=== PATIENT | male | born 1945 | race Caucasian/White ===

== ENCOUNTER 2017-08-24 08:54 | Outpatient (CLI) | payer OTHER | END 2017-08-24 09:03 | disposition home or self-care (01) | LOC: LAB 08:54 | DX: D64.89 Other specified anemias (principal); E03.4 Atrophy of thyroid (acquired); E78.2 Mixed hyperlipidemia; E11.9 Type 2 diabetes mellitus without complications ==

== ENCOUNTER 2017-08-27 15:56 | Outpatient (CLI) | payer OTHER | END 2017-08-27 15:57 | disposition home or self-care (01) | LOC: LAB 15:56 | DX: K75.89 Other specified inflammatory liver diseases (principal) ==

== ENCOUNTER 2018-08-12 09:19 | Outpatient (CLI) | payer OTHER | END 2018-08-12 09:30 | disposition home or self-care (01) | LOC: LAB 09:19 | DX: D64.89 Other specified anemias (principal); E11.9 Type 2 diabetes mellitus without complications; E03.4 Atrophy of thyroid (acquired); E78.00 Pure hypercholesterolemia, unspecified ==

== ENCOUNTER 2022-06-05 08:12 | Outpatient (CLI) | payer OTHER | END 2022-06-05 08:24 | disposition home or self-care (01) | LOC: SONOGRAMA 08:12 | PROVIDERS: ATTEND Urology | DX: C64.2 Malignant neoplasm of left kidney, except renal pelvis (principal); N40.1 Benign prostatic hyperplasia with lower urinary tract symptoms; Z90.5 Acquired absence of kidney ==

== ENCOUNTER 2022-09-24 08:50 | Outpatient (CLI) | payer OTHER | END 2022-09-24 08:53 | disposition home or self-care (01) | LOC: NUCLEAR 08:50 | PROVIDERS: ATTEND Urology | DX: C64.2 Malignant neoplasm of left kidney, except renal pelvis (principal) | CPT/HCPCS: 78306; A9503 ==

== ENCOUNTER 2023-03-24 14:39 | Outpatient (CLI) | payer OTHER | END 2023-03-24 14:44 | disposition home or self-care (01) | LOC: RAD 14:39 | PROVIDERS: ATTEND Physical Medicine & Rehabilitation | DX: M54.2 Cervicalgia (principal); C64.2 Malignant neoplasm of left kidney, except renal pelvis ==

== ENCOUNTER 2023-03-29 09:12 | Outpatient (CLI) | payer OTHER | END 2023-03-29 09:15 | disposition home or self-care (01) | LOC: SONOGRAMA 09:12 | PROVIDERS: ATTEND Urology | DX: N28.1 Cyst of kidney, acquired (principal); C64.2 Malignant neoplasm of left kidney, except renal pelvis ==

== ENCOUNTER 2023-09-14 14:24 | Outpatient (CLI) | payer OTHER | END 2023-09-14 14:27 | disposition home or self-care (01) | LOC: RAD 14:24 | PROVIDERS: ATTEND Urology | DX: C64.2 Malignant neoplasm of left kidney, except renal pelvis (principal) ==

== ENCOUNTER 2024-01-27 15:13 | Outpatient (CLI) | payer OTHER | END 2024-01-27 15:20 | disposition home or self-care (01) | LOC: RAD 15:13 | PROVIDERS: ATTEND General Practice | DX: S99.101A Unspecified physeal fracture of right metatarsal, initial encounter for closed fracture (principal) ==

== ENCOUNTER 2024-03-23 08:24 | Outpatient (CLI) | payer OTHER | END 2024-03-23 08:26 | disposition home or self-care (01) | LOC: SONOGRAMA 08:24 | DX: C64.9 Malignant neoplasm of unspecified kidney, except renal pelvis (principal); K76.0 Fatty (change of) liver, not elsewhere classified ==

== ENCOUNTER → 2024-03-24 13:21 | Outpatient (CLI) | payer OTHER | END | disposition home or self-care (01) | LOC: RAD 13:21 | PROVIDERS: ATTEND Urology | DX: C64.2 Malignant neoplasm of left kidney, except renal pelvis (principal) ==

== ENCOUNTER 2024-06-16 14:23 | Outpatient (CLI) | payer OTHER | END 2024-06-16 14:40 | disposition home or self-care (01) | LOC: MRI 14:23 | DX: M54.50 Low back pain, unspecified (principal); M54.16 Radiculopathy, lumbar region | CPT/HCPCS: 72148; 72195 ==

== ENCOUNTER 2024-08-07 15:32 | Outpatient (CLI) | payer OTHER | END 2024-08-07 15:35 | disposition home or self-care (01) | LOC: RAD 15:32 | PROVIDERS: ATTEND General Practice | DX: R06.02 Shortness of breath (principal); R53.83 Other fatigue ==

== ENCOUNTER → 2024-09-25 07:56 | Outpatient (CLI) | payer OTHER | END | disposition home or self-care (01) | LOC: NUCLEAR 07:45 | PROVIDERS: ATTEND Urology | DX: C64.2 Malignant neoplasm of left kidney, except renal pelvis (principal) | CPT/HCPCS: 78306; A9503 ==